=== PATIENT | female | born 2005 | race African-American/Black ===

== ENCOUNTER 2024-03-24 05:02 | Inpatient (IN) | payer MEDICAID ==
[~2024-03-24] VITALS: Ht 177.8 cm; Wt 63.5 kg
[2024-03-24 05:46] LABS: COVID AG,FIA SOURCE NASAL SWAB
[2024-03-24 05:47] LABS: BASOPHILS % (AUTO) 1.3 % (0.0-2.0); EOSINOPHILS % (AUTO) 4.3 % (1.0-6.0); HEMATOCRIT 35.7 % (36-46); HEMOGLOBIN 12.3 g/dL (12.0-16.0); LYMPHOCYTES % (AUTO) 24.4 % (22.0-44.0); MEAN CORPUSCULAR HEMOGLOBIN 28.1 pg (26.0-34.0); MEAN CORPUSCULAR HGB CONC 34.5 G/dL (31.0-37.0); MEAN CORPUSCULAR VOLUME 81 fL (80-100); MONOCYTES # (AUTO) 0.9 K/uL (0.1-1.0); NEUTROPHILS # (AUTO) 4.8 K/uL (1.8-7.7); PLATELET COUNT (AUTO) 594 K/uL (150-450); RED BLOOD CELL COUNT(AUTO) 4.39 MIL/uL (4.00-5.20); RED CELL DISTRIBUTION WIDTH 15.4 % (11.5-14.5); WHITE BLOOD COUNT (AUTO) 8.1 K/uL (4.5-11.0)
[2024-03-24 05:55] LABS: ANION GAP 5 mmol/L (8-16); CALCIUM, TOTAL 8.7 mg/dL (8.8-10.5); CARBON DIOXIDE 29 mmol/L (22-29); CHLORIDE 104 mmol/L (98-107); CREATININE 1.08 mg/dL (0.60-1.30); GLOMERULAR FILTR. RATE CALC > 60 mL/min (>60); GLUCOSE,RANDOM 95 mg/dL (70-110); POTASSIUM 3.5 mmol/L (3.5-5.1); SODIUM SERUM 137 mmol/L (136-145); UREA NITROGEN, BLOOD 8 mg/dL (7-18)
[2024-03-24 05:58] LABS: ALCOHOL, BLOOD (SERUM) < 3 mg/dL (0-10)
[2024-03-24 06:07] LABS: SARS-COV2 (COVID) ANTIGEN,FIA Negative (Negative)
[2024-03-24] MEDS ORDERED: LOPERAMIDE HCL 2 MG CAPSULE PO PRN (10:15)
[2024-03-24] MEDS ORDERED: HydrOXYzine PAMOATE 50 MG CAPSULE PO PRN (10:15)
[2024-03-24] MEDS ORDERED: ACETAMINOPHEN 325 MG TABLET PO PRN (10:15)
[2024-03-24] MEDS ORDERED: GuaiFENesin/D-METHORPHAN [SUGAR-FREE] 200-20MG/10 ML SYRUP UDCUP PO PRN (10:15)
[2024-03-24] MEDS ORDERED: MAGNESIUM HYDROXIDE SUSPENSION 30 ML UDCUP PO PRN (10:15)
[2024-03-24] MEDS ORDERED: TUBERCULIN, PURIFIED PROTEIN DERIVATIVE 5 TU/0.1 ML SYRINGE ID ONE (10:15)
[2024-03-24] MEDS ORDERED: MAG HYDROX/ALUMINUM HYD/SIMETH ES 30 ML SUSPENSION UDCUP PO PRN (10:15)
[2024-03-24] MEDS ORDERED: QUEtiapine FUMARATE 100 MG TABLET PO PRN (10:15)
[2024-03-24 11:04] VITALS: O2SAT 100
[2024-03-24] MEDS ORDERED: INFLUENZA VIRUS VACCINE TVS (6MO+) 2024-25/PF 45 MCG/0.5 ML SYRINGE IM. ONE (13:00)
[2024-03-24] MEDS: THIAMINE 100 MG TABLET PO SCH (17:00)
[2024-03-24 18:33] VITALS: BP 143/82; PULSE 105; RESP 18; TEMP 97.5; O2SAT 96
[2024-03-24] MEDS ORDERED: NICOTINE POLACRILEX 2 MG LOZENGE PO PRN (20:00)
[2024-03-24 20:18] VITALS: BP 105/62; PULSE 90; RESP 17; TEMP 97.7; O2SAT 97
[2024-03-24] MEDS: DEXTROMETHORPHAN HBR/QUINIDINE 20/10 MG CAPSULE PO SCH (20:50)
[2024-03-24] MEDS: MELATONIN 5 MG TABLET PO SCH (20:50)
[2024-03-25 08:00] VITALS: BP 140/79; PULSE 80; TEMP 96.5; O2SAT 98
[2024-03-25 08:11] LABS: HEMOGLOBIN A1C 5.4 % (3.8-5.6)
[2024-03-25 08:24] LABS: CHOL/HDL RATIO 3.2 (3.9-5.7); FREE T4 (FREE THYROXINE) 1.05 ng/dL (0.76-1.46); THYROID STIMULATING HORMONE 0.14 uIU/mL (0.36-3.74)
[2024-03-25] MEDS: MULTIVITAMINS WITH MINERALS, THERAPEUTIC TABLET PO SCH (08:35)
[2024-03-25] MEDS: NALTREXONE HCL 50 MG TABLET PO SCH (08:35)
[2024-03-25] MEDS: FLUoxetine HCL 20 MG CAPSULE PO SCH (08:35)
[2024-03-25] MEDS: FOLIC ACID 1 MG TABLET PO SCH (08:35)
[2024-03-25] MEDS: OMEGA-3/DHA/EPA/FISH OIL 1,000 MG CAPSULE PO SCH (08:35)
[2024-03-25] MEDS ORDERED: OLANZapine 5 MG RAPDIS TABLET PO PRN (14:30)
[2024-03-25] MEDS: HALOPERIDOL LACTATE 5 MG/ML VIAL IM ONE (14:41)
[2024-03-25] MEDS: LORazepam 2 MG/ML VIAL IM ONE (14:41)
[2024-03-25] MEDS: DiphenhydrAMINE HCL 50 MG/ML VIAL IM ONE (14:41)
[2024-03-25 20:03] VITALS: RESP 16
[2024-03-25] MEDS: OLANZapine 5 MG RAPDIS TABLET PO SCH (21:09)
[2024-03-25] MEDS: DIVALPROEX SODIUM 500 MG ER TABLET PO SCH (21:41)
[2024-03-25] MEDS: MELATONIN 5 MG TABLET PO SCH (21:42)
[2024-03-26 08:09] VITALS: BP 118/68; PULSE 93; RESP 18; TEMP 98.9; O2SAT 99
[2024-03-26 09:51] LABS: APPEARANCE,URINE TURBID (CLEAR); BILIRUBIN,URINE NEGATIVE (NEGATIVE); COLOR,URINE ORANGE (YELLOW); GLUCOSE, URINE (UA) NEGATIVE (NEGATIVE); KETONES,URINE TRACE mg/dL (NEGATIVE); LEUKOCYTE ESTERASE ,URINE MODERATE (NEGATIVE); NITRATE,URINE NEGATIVE (NEGATIVE); OCCULT BLOOD,URINE NEGATIVE (NEGATIVE); PH,URINE 5.5 (5.0-8.0); PH,URINE DRUG SCREEN 5.5 (5.0-8.0); PROTEIN,URINE TRACE mg/dL (NEGATIVE); SPECIFIC GRAVITIY, URINE 1.029 (1.003-1.030); UROBILINOGEN,URINE <=1.0 mg/dL (<=1.0)
[2024-03-26 10:32] LABS: ALCOHOL, URINE DRUG SCREEN NEGATIVE (NEGATIVE); AMPHET/METH SCREEN,URINE NEGATIVE (NEGATIVE); BARBITURATE SCREEN, URINE NEGATIVE (NEGATIVE); BENZODIAZEPINES SCREEN,URINE NEGATIVE (NEGATIVE); CANNABINOID SCREEN,URINE POSITIVE (NEGATIVE); COCAINE SCREEN,URINE NEGATIVE (NEGATIVE); METHADONE SCREEN, URINE NEGATIVE (NEGATIVE); OPIATE SCREEN,URINE NEGATIVE (NEGATIVE); PHENCYCLIDINE SCREEN,URINE NEGATIVE (NEGATIVE)
[2024-03-26 11:09] LABS: BACTERIA,URINE Few /HPF (None Seen); RBC,URINE None Seen /HPF (0-2); SQUAMOUS EPITHELIAL CELL,UR Few /LPF (None Seen); WBC,URINE 0-2 /HPF (0-5)
[2024-03-26 11:10] LABS: AMORPHOUS SEDIMENT,UR Many /LPF (None Seen); CALCIUM OXALATE CRYSTALS,UR Few /LPF (None Seen)
[2024-03-26] MEDS: LORazepam 2 MG TABLET PO PRN (17:42)
[2024-03-26 20:29] VITALS: BP 112/69; PULSE 95; RESP 16; TEMP 98.1; O2SAT 97
[2024-03-26] MEDS: OLANZapine 10 MG RAPDIS TABLET PO SCH (20:36)
[2024-03-26] MEDS: NITROFURANTOIN MONOHYD/M-CRYST 100 MG CAPSULE [MACROBID] PO SCH (20:36)
[2024-03-26] MEDS: ZOLPIDEM TARTRATE 10 MG TABLET PO PRN (20:37)
[2024-03-27 08:26] VITALS: RESP 16
[2024-03-27 20:06] VITALS: BP 105/66; PULSE 99; RESP 17; TEMP 97.4; O2SAT 96
[2024-03-28 08:26] VITALS: RESP 16
[2024-03-28] MEDS: PROMETHAZINE HCL 25 MG TABLET PO PRN (19:09)
[2024-03-28 20:14] VITALS: BP 109/68; PULSE 93; RESP 16; TEMP 97.7; O2SAT 97
[2024-03-28 21:47] VITALS: BP 107/65; PULSE 132; RESP 19; TEMP 99.6; O2SAT 97
[2024-03-30] MEDS ORDERED: NALT50TA33 PO (21:59)
[2024-03-30] MEDS ORDERED: OLAN10TA26 PO (21:59)
[2024-03-30] MEDS ORDERED: MELA5TAB40 PO (21:59)
== END 2024-03-29 11:27 | disposition short-term general hospital (02) | DRG 751 ==
LOC: EMS 05:05 → B2S 10:26 → B3A 11:15
PROVIDERS: ADMIT Psychiatry & Neurology Psychiatry; ATTEND Psychiatry & Neurology Psychiatry
PROC: GZHZZZZ Group Psychotherapy (ICD-10-PCS; principal; 2024-03-24)
PROC: GZ58ZZZ Individual Psychotherapy, Cognitive-Behavioral (ICD-10-PCS; 2024-03-24)
PROC: GZ56ZZZ Individual Psychotherapy, Supportive (ICD-10-PCS; 2024-03-24)
DX: F33.2 Major depressive disorder, recurrent severe without psychotic features (principal); J18.9 Pneumonia, unspecified organism; Z83.3 Family history of diabetes mellitus; Z20.822 Contact with and (suspected) exposure to COVID-19
CPT/HCPCS: 80048; 80061; 80307; 81001; 83036; 84439; 84443; 84703; 85025; 86592; 87081; G0480; J1200; J1630; J2060

== ENCOUNTER 2024-03-30 14:01 | Inpatient (IN) | payer OTHER, MEDICAID ==
[2024-03-30] MEDS ORDERED: LORazepam 2 MG TABLET PO PRN (14:45)
[2024-03-30] MEDS ORDERED: ZOLPIDEM TARTRATE 10 MG TABLET PO PRN (14:45)
[2024-03-30] MEDS ORDERED: OLANZapine 5 MG RAPDIS TABLET PO PRN (14:45)
[2024-03-30 18:40] VITALS: BP 115/78; PULSE 110; RESP 18; TEMP 98.6; O2SAT 98
[2024-03-30] MEDS ORDERED: INFLUENZA VIRUS VACCINE TVS (6MO+) 2024-25/PF 45 MCG/0.5 ML SYRINGE IM. ONE (20:15)
[2024-03-30 20:22] VITALS: BP 115/78; PULSE 110; RESP 18; TEMP 98.6; O2SAT 98
[2024-03-30] MEDS: OLANZapine 10 MG RAPDIS TABLET PO SCH ×2 (21:00→21:11)
[2024-03-30] MEDS: MELATONIN 5 MG TABLET PO SCH (21:12)
[2024-03-30] MEDS ORDERED: MELA5TAB40 PO (21:59)
[2024-03-30] MEDS ORDERED: OLAN10TA26 PO (21:59)
[2024-03-30] MEDS ORDERED: NALT50TA33 PO (21:59)
[2024-03-31] MEDS: NALTREXONE HCL 50 MG TABLET PO SCH (08:05)
[2024-03-31] MEDS: FOLIC ACID 1 MG TABLET PO SCH (08:06)
[2024-03-31] MEDS: THIAMINE 100 MG TABLET PO SCH (08:06)
[2024-03-31 08:28] VITALS: BP 118/72; PULSE 100; RESP 16; TEMP 97.9; O2SAT 95
== END 2024-03-31 13:48 | disposition home or self-care (01) | DRG 753 ==
LOC: B3A 17:36
PROVIDERS: ADMIT Psychiatry & Neurology Psychiatry; ATTEND Psychiatry & Neurology Psychiatry
PROC: GZHZZZZ Group Psychotherapy (ICD-10-PCS; principal; 2024-03-31)
PROC: GZ58ZZZ Individual Psychotherapy, Cognitive-Behavioral (ICD-10-PCS; 2024-03-31)
DX: F31.5 Bipolar disorder, current episode depressed, severe, with psychotic features (principal); Z91.148 Patient's other noncompliance with medication regimen for other reason; F41.9 Anxiety disorder, unspecified; G47.00 Insomnia, unspecified; Y92.89 Other specified places as the place of occurrence of the external cause; Z56.0 Unemployment, unspecified; Z91.51 Personal history of suicidal behavior
CPT/HCPCS: 87081; Z7610